=== PATIENT | male | born 1970 | race Caucasian/White ===

== ENCOUNTER 2017-12-14 21:35 | Inpatient (IN) | payer BC, OTHER ==
[2017-12-15 02:55] LABS: ADD MAN DIFF? NO
[2017-12-15 02:56] LABS: BASOPHILS % 0.2 % (0.0-2.0); EOSINOPHILS # 0.1 10^3/ul (0.0-0.5); EOSINOPHILS % 0.8 % (0.0-7.0); HEMATOCRIT 48.2 % (42.0-52.0); HEMOGLOBIN 16.8 g/dl (14.0-18.0); LYMPHOCYTES # 2.5 10^3/ul (0.8-2.9); LYMPHOCYTES % 18.4 % (15.0-51.0); MEAN CORPUSCULAR HEMOGLOBIN 30.1 pg (29.0-33.0); MEAN CORPUSCULAR HGB CONC 34.9 g/dl (32.0-37.0); MEAN CORPUSCULAR VOLUME 86.4 fl (82.0-101.0); MEAN PLATELET VOLUME 10.3 fl (7.4-10.4); MONOCYTE # 0.9 10^3/ul (0.3-0.9); MONOCYTES % 6.3 % (0.0-11.0); NEUTROPHIL # 10.2 10^3/ul (1.6-7.5); PLATELET COUNT 339 10^3/UL (140-415); RED BLOOD COUNT 5.58 10^6/ul (4.70-6.10); RED CELL DISTRIBUTION WIDTH 12.4 % (11.5-14.5)
[2017-12-15 02:56] LABS: WHITE BLOOD COUNT 13.8 10^3/ul (4.8-10.8)
[2017-12-15 03:18] LABS: INR 0.97
[2017-12-15 03:19] LABS: PARTIAL THROMBOPLASTIN TIME 30.3 Sec (25.0-35.0)
[2017-12-15 03:24] LABS: ALANINE AMINOTRANSFERASE 77 IU/L (13-69); ALBUMIN/GLOBULIN RATIO 1.35; ALKALINE PHOSPHATASE 91 IU/L (42-121); ANION GAP 21 (8-16); ASPARTATE AMINO TRANSFERASE 41 IU/L (15-46); BILIRUBIN,INDIRECT 1.1 mg/dl (0-1.1); BILIRUBIN,TOTAL 1.1 mg/dl (0.2-1.3); BLOOD UREA NITROGEN 16 mg/dl (7-20); CALCIUM 9.9 mg/dl (8.4-10.2); CARBON DIOXIDE 26 mmol/L (21-31); CHLORIDE 102 mmol/L (97-110); CREATININE 0.91 mg/dl (0.61-1.24); GLUCOSE 120 mg/dl (70-220); POTASSIUM 4.6 mmol/L (3.5-5.1); SODIUM 144 mmol/L (135-144); TOTAL PROTEIN 8.7 g/dl (6.1-8.1)
[2017-12-15] MEDS ORDERED: ONDANSETRON 4 MG INJ IV (04:30)
[2017-12-15] MEDS ORDERED: morphine 2 MG INJ IV (04:30)
[2017-12-15] MEDS: HEPARIN 5,000 UNIT/0.5 ML VIAL SC ×2 (08:59→21:44)
[2017-12-15] MEDS ORDERED: ACETAMINOPHEN 325 MG TAB PO (13:00)
[2017-12-15 14:12] LABS: HEMOGLOBIN A1C 5.6 % (0-5.9)
[2017-12-15 14:21] LABS: TROPONIN-I < 0.012 ng/ml (0.000-0.120)
[2017-12-16 05:37] LABS: ADD MAN DIFF? NO
[2017-12-16 05:40] LABS: BASOPHILS % 0.4 % (0.0-2.0); EOSINOPHILS # 0.4 10^3/ul (0.0-0.5); EOSINOPHILS % 3.9 % (0.0-7.0); HEMATOCRIT 46.2 % (42.0-52.0); HEMOGLOBIN 15.9 g/dl (14.0-18.0); LYMPHOCYTES # 2.6 10^3/ul (0.8-2.9); LYMPHOCYTES % 27.2 % (15.0-51.0); MEAN CORPUSCULAR HEMOGLOBIN 30.2 pg (29.0-33.0); MEAN CORPUSCULAR HGB CONC 34.4 g/dl (32.0-37.0); MEAN CORPUSCULAR VOLUME 87.7 fl (82.0-101.0); MEAN PLATELET VOLUME 10.4 fl (7.4-10.4); MONOCYTE # 0.9 10^3/ul (0.3-0.9); MONOCYTES % 9.5 % (0.0-11.0); NEUTROPHIL # 5.6 10^3/ul (1.6-7.5); NEUTROPHILS % 58.6 % (39.0-77.0); PLATELET COUNT 314 10^3/UL (140-415); RED BLOOD COUNT 5.27 10^6/ul (4.70-6.10); RED CELL DISTRIBUTION WIDTH 12.3 % (11.5-14.5)
[2017-12-16 05:40] LABS: WHITE BLOOD COUNT 9.6 10^3/ul (4.8-10.8)
[2017-12-16 06:15] LABS: PHOSPHORUS 5.4 mg/dl (2.5-4.9)
[2017-12-16 06:17] LABS: ALANINE AMINOTRANSFERASE 61 IU/L (13-69); ALBUMIN 4.5 g/dl (3.3-4.9); ALBUMIN/GLOBULIN RATIO 1.32; ALKALINE PHOSPHATASE 95 IU/L (42-121); ANION GAP 17 (8-16); ASPARTATE AMINO TRANSFERASE 33 IU/L (15-46); BILIRUBIN,INDIRECT 1.2 mg/dl (0-1.1); BILIRUBIN,TOTAL 1.2 mg/dl (0.2-1.3); BLOOD UREA NITROGEN 15 mg/dl (7-20); CALCIUM 9.4 mg/dl (8.4-10.2); CARBON DIOXIDE 29 mmol/L (21-31); CHLORIDE 99 mmol/L (97-110); CREATININE 0.98 mg/dl (0.61-1.24); GLUCOSE 113 mg/dl (70-220); POTASSIUM 4.1 mmol/L (3.5-5.1); SODIUM 141 mmol/L (135-144); TOTAL PROTEIN 7.9 g/dl (6.1-8.1)
[2017-12-16] MEDS: HEPARIN 5,000 UNIT/0.5 ML VIAL SC ×2 (08:20→21:00)
[2017-12-16] MEDS: morphine 2 MG INJ IV (10:18)
[2017-12-16] MEDS ORDERED: MIDAZOLAM 1 MG/ML 2 ML INJ (20:17)
[2017-12-16] MEDS ORDERED: FENTAnyl 50 MCG/ML VIAL (20:18)
[2017-12-16] MEDS ORDERED: CEFAZOLIN 1 GM INJ (20:18)
[2017-12-16] MEDS ORDERED: PROPOFOL 0 ML (20:18)
[2017-12-16] MEDS ORDERED: ROPIVACAINE 0.5 % 30 ML VIAL (20:18)
[2017-12-16] MEDS ORDERED: morphine SULFATE/PF (10 MG/10 ML) INJ (20:18)
[2017-12-16] MEDS ORDERED: BUPIVACAINE 0.75%/DEXT (SPINAL) 2 ML INJ (20:53)
[2017-12-16] MEDS: POLYMYXIN/BACITRACIN 1L IRRIG (21:50)
[2017-12-16] MEDS ORDERED: PROPOFOL 100 ML (22:57)
[2017-12-16] MEDS ORDERED: KETOROLAC 30 MG INJ (23:02)
[2017-12-16] MEDS ORDERED: PROPOFOL 20 ML (23:09)
[2017-12-17] MEDS ORDERED: morphine 2 MG INJ IV
[2017-12-17] MEDS: CEFAZOLIN 1 GM/50 ML (PMX) 50 ML IVPB ×3 (00:53→16:26)
[2017-12-17] MEDS: DEXTROSE 5%-LR 1,000 ML IV (01:28)
[2017-12-17] MEDS ORDERED: ENOXAPARIN 40 MG/0.4 ML SYG SC (09:00)
[2017-12-17] MEDS: HEPARIN 5,000 UNIT/0.5 ML VIAL SC ×2 (09:04→20:51)
[2017-12-17] MEDS: HYDROCODONE/APAP (5/325) TAB PO (18:12)
[2017-12-17] MEDS: TAMSULOSIN (SR) 0.4 MG CAP PO (20:49)
[2017-12-17] MEDS: morphine LIQ (10 MG/5 ML) CUP PO (21:50)
[2017-12-17] MEDS: morphine 2 MG INJ IV (22:51)
[2017-12-18] MEDS: morphine 2 MG INJ IV ×2 (03:10→08:29)
[2017-12-18] MEDS: HYDROCODONE/APAP (5/325) TAB PO (07:13)
[2017-12-18] MEDS: HEPARIN 5,000 UNIT/0.5 ML VIAL SC (08:32)
[2017-12-18] MEDS ORDERED: NAPROXEN 500 MG TAB PO (12:30)
[2017-12-18] MEDS: HYDROCODONE/APAP (10/325) TAB PO ×2 (13:22→18:05)
== END 2017-12-18 19:15 | disposition home or self-care (01) | DRG 517 ==
LOC: FTE 21:35 → MS1 12-15 02:15
PROC: 0QSF04Z Reposition Left Patella with Internal Fixation Device, Open Approach (ICD-10-PCS; principal; 2017-12-16 20:39)
DX: S82.042A Displaced comminuted fracture of left patella, initial encounter for closed fracture (principal); W17.89XA Other fall from one level to another, initial encounter; I10 Essential (primary) hypertension; R33.9 Retention of urine, unspecified
CPT/HCPCS: 36415; 73560; 73562; 73564; 80053; 83036; 83735; 84100; 84484; 85025; 85610; 85730; 93005; 97116; 97161; 97530; 99285-25

== ENCOUNTER → 2018-08-05 | Outpatient (CLI) | payer BC ==
[2018-08-05 12:54] LABS: ADD MAN DIFF? NO
[2018-08-05 13:02] LABS: BASOPHILS % 0.3 % (0.0-2.0); EOSINOPHILS # 0.3 10^3/ul (0.0-0.5); EOSINOPHILS % 3.5 % (0.0-7.0); HEMOGLOBIN 16.7 g/dl (14.0-18.0); LYMPHOCYTES # 2.5 10^3/ul (0.8-2.9); MEAN CORPUSCULAR HEMOGLOBIN 29.6 pg (29.0-33.0); MEAN CORPUSCULAR HGB CONC 34.1 g/dl (32.0-37.0); MEAN CORPUSCULAR VOLUME 86.7 fl (82.0-101.0); MONOCYTE # 0.6 10^3/ul (0.3-0.9); MONOCYTES % 6.9 % (0.0-11.0); NEUTROPHIL # 5.5 10^3/ul (1.6-7.5); PLATELET COUNT 323 10^3/UL (140-415); RED BLOOD COUNT 5.65 10^6/ul (4.70-6.10); RED CELL DISTRIBUTION WIDTH 12.1 % (11.5-14.5)
[2018-08-05 13:02] LABS: WHITE BLOOD COUNT 8.9 10^3/ul (4.8-10.8)
[2018-08-05 13:13] LABS: HEMOGLOBIN A1C 5.4 % (0-5.9)
[2018-08-05 13:21] LABS: INR 0.89; PROTIME 12.1 Sec (11.9-14.9); PT RATIO 0.9
[2018-08-05 13:22] LABS: PARTIAL THROMBOPLASTIN TIME 30.7 Sec (23.0-35.0)
[2018-08-05 13:29] LABS: ALANINE AMINOTRANSFERASE 53 IU/L (13-69); ALBUMIN 5.2 g/dl (3.3-4.9); ALBUMIN/GLOBULIN RATIO 1.44; ALKALINE PHOSPHATASE 93 IU/L (42-121); ANION GAP 13 (5-13); ASPARTATE AMINO TRANSFERASE 42 IU/L (15-46); BILIRUBIN,INDIRECT 0.7 mg/dl (0-1.1); BILIRUBIN,TOTAL 0.7 mg/dl (0.2-1.3); BLOOD UREA NITROGEN 16 mg/dl (7-20); CALCIUM 10.4 mg/dl (8.4-10.2); CARBON DIOXIDE 30 mmol/L (21-31); CHLORIDE 98 mmol/L (97-110); CREATININE 0.84 mg/dl (0.61-1.24); Estimated GFR > 60 mL/min (>60); GLUCOSE 96 mg/dl (70-220); POTASSIUM 4.8 mmol/L (3.5-5.1); SODIUM 141 mmol/L (135-144); TOTAL PROTEIN 8.8 g/dl (6.1-8.1)
== END | disposition home or self-care (01) ==
LOC: LAB 12:00
DX: R07.89 Other chest pain (principal)
CPT/HCPCS: 71046; 80053; 83036; 85025; 85610; 85730; 93005

== ENCOUNTER 2018-08-14 11:41 | Day surgery (SDC) | payer BC ==
[2018-08-14] MEDS ORDERED: MIDAZOLAM 1 MG/ML 2 ML INJ (15:21)
[2018-08-14] MEDS ORDERED: FENTAnyl 50 MCG/ML VIAL (15:21)
[2018-08-14] MEDS ORDERED: ROPIVACAINE 0.5 % 30 ML VIAL (15:30)
[2018-08-14] MEDS ORDERED: LIDOCAINE 2% (SDV) 5 ML INJ (15:35)
[2018-08-14] MEDS ORDERED: PROPOFOL 20 ML (15:35)
[2018-08-14] MEDS ORDERED: DEXAMETHASONE 4 MG/ML 5 ML INJ (15:36)
[2018-08-14] MEDS ORDERED: CEFAZOLIN 1 GM INJ (15:36)
[2018-08-14] MEDS ORDERED: ONDANSETRON 4 MG INJ (15:36)
[2018-08-14] MEDS ORDERED: FAMOTIDINE 20 MG INJ (15:36)
[2018-08-14] MEDS ORDERED: HYDROmorphONE 2 MG/ML SYG (16:22)
[2018-08-14] MEDS ORDERED: HYDROCODONE/APAP (5/325) TAB PO (17:00)
[2018-08-14] MEDS ORDERED: EPHEDrine 25 MG/5 ML SYG (17:00)
[2018-08-14] MEDS ORDERED: morphine 2 MG INJ IV (17:00)
[2018-08-14] MEDS ORDERED: DIPHENHYDRAMINE 50 MG INJ IV (17:30)
[2018-08-14] MEDS ORDERED: HYDROmorphONE 1 MG/5 ML IV SYRINGE IV ×3 (17:30)
[2018-08-14] MEDS ORDERED: EPHEDrine SULFATE 50 MG/5 ML SYG IV (17:30)
[2018-08-14] MEDS ORDERED: MEPERIDINE 25 MG INJ IV (17:30)
[2018-08-14] MEDS ORDERED: PROCHLORPERAZINE 10 MG INJ IV (17:30)
[2018-08-14] MEDS ORDERED: FENTAnyl 50 MCG/ML VIAL IV ×3 (17:30)
[2018-08-14] MEDS ORDERED: ONDANSETRON 4 MG INJ IV (17:30)
[2018-08-14] MEDS: OXYCODONE/ACETAMINOPHEN (5/325) TAB PO (17:42)
== END 2018-08-14 18:20 | disposition home or self-care (01) ==
LOC: SDS 11:41
DX: T84.84XA Pain due to internal orthopedic prosthetic devices, implants and grafts, initial encounter (principal); M25.562 Pain in left knee; I10 Essential (primary) hypertension; E66.9 Obesity, unspecified
CPT/HCPCS: 20680; 73560; 73562; 88300